=== PATIENT | female | born 1975 | race African-American/Black ===

== ENCOUNTER 2024-09-23 05:58 | Day surgery (SDC) | payer MEDICAID, SELFPAY ==
[2024-09-23] VITALS (9 sets, daily range): BP systolic 120–154; BP diastolic 68–96; PULSE 80–93; RESP 14–18; TEMP 36.2–37.1; O2SAT 98–100; BMI 38.2
[2024-09-23] MEDS: Lactated Ringers 1,000 ML 15 ML IV (06:41)
--- NOTE | 2024-09-23 06:46 | PCM.PRE.AN2 ---
ASA Classification* ASA Classification ASA Classification: 2 Assessment & Plan Anesthesia* Anesthesia Assessment Anesthesia Assessment: Discussed sedation and/or anesthesia options, risks, benefits, and alternatives with patient/parents/legal guardian/POA. Questions invited. The patient/parents/legal guardian/POA seems to understand and agrees to proceed with anesthesia plan. Reviewed the physical assessment, medical history, allergy history and patient home medications list prior to surgery/procedure/anesthetic and documented any changes. Performed airway and anesthesia risk assessments. 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 When Was Last Pacemaker Check QUESTION #4 FULL TEXT: You/Your Family Experience fever (hyperthermia) with Anesthesia Last Oral Intake Last Oral intake: Last Oral Intake NPO since 01:00 09/23/24 06:28 Meds taken in AM with sips of No 09/23/24 06:28 water? 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 - tablet machine operator Female Yes 09/16/24 11:13 HX of Motion Sickness No 09/16/24 11:13 HX of N/V After Surgery No 09/16/24 11:13 Non-Smoker Yes 09/16/24 11:13 Duration of Surgery greater No 09/16/24 11:13 than 60 minutes Number of Risk Factors 2 09/16/24 11:13 PONV Score Moderate Risk 09/16/24 11:13 Height & Weight Height & Weight: Anesthesia: Height & Weight Height 5 ft 2 in 09/23/24 06:28 Weight: 95 kg 09/23/24 06:28 Body Mass Index (BMI) 38.2 09/23/24 06:28 Respiratory Assessment Respiratory Assessment - tablet machine operator: Respiratory Tract Infection Hx - tablet machine operator Hx Respiratory Tract Infection No 09/16/24 11:13 STOP Sleep Apnea STOP Sleep Apnea - tablet machine operator: STOP Sleep Apnea - tablet machine operator Hx Hypertension No 09/16/24 11:13 Hx Sleep Apnea Yes 09/16/24 11:13 CPAP Yes 09/16/24 11:13 BIPAP No 09/16/24 11:13 Do you snore loudly (louder than talking or can be heard Do you often feel tired/ fatigued/ sleepy during daytime? Has anyone observed you stop breathing during sleep? STOP Results Positive 09/16/24 11:13 QUESTION #5 FULL TEXT : Do you snore loudly (louder than talking or can be heard through closed doors)? 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 Specify any problems Hx of Preganancy in last 3 No 09/16/24 11:13 Months Nurse Filling Out Transfusion DSCHRIBER 09/16/24 11:13 & Questions: Date: 09/16/24 09/16/24 11:13 Time: 11:15 09/16/24 11:13 Patient unable to answer at this time (ie. confused, unrespo /Reproduction History /Reproductive History - tablet machine operator: /Reproductive Hx- tablet machine operator Hx Now No 09/16/24 11:13 Gestational Age (in weeks): EDC: Hx Hx Para Hx Section SAB No 09/16/24 11:13 Active Medications Active Medications: Current Medications Generic Name Dose Route Start Last Admin Trade Name Freq PRN Reason Stop Dose Admin Cefazolin Sodium 2 gm/ Sodium 110 mls @ 150 mls/hr 09/23/24 07:30 Chloride IV 09/23/24 08:13 INTRAOP ONE Lactated Ringer's 1,000 mls @ 15 mls/hr 09/23/24 06:15 09/23/24 06:41 IV 15 mls/hr .Q48H SANTI Administration PFSH Medical History Wears glasses Syncope History of hiatal hernia Gastric reflux Asthma Shortness of breath on exertion Non-smoker History of pain when walking History of edema Cardiology follow-up encounter History of echocardiogram History of stress test CPAP (continuous positive airway pressure) dependence Home Medications ?Medication ?Instructions ?Recorded ?Last Taken ?Type albuterol sulfate 90 mcg/actuation 2 inh inhalation Q8H PRN shortness 09/16/24 Unknown History aerosol inhaler of breath or wheezing omeprazole 20 mg tablet,delayed 20 mg PO QHS PRN PRN GERD 09/16/24 Unknown History release Allergy/AdvReac Type Severity Reaction Status Date / Time No Known Allergies Allergy Verified 09/23/24 06:27 Surgical History History of hysterectomy History of bilateral breast reduction surgery History of abdominoplasty Social History household members: spouse, family and children Smoking Status: Former smoker alcohol intake: never Review of Systems (Anesthesia) ROS Narrative System reviewed and no additional complaints, except as documented.
--- NOTE | 2024-09-23 07:05 | PCM.HP.BLA ---
History and Physical Date of Admission: 09/23/24 [facility] [address] [place] [address] OFFICE VISIT Date of Service: 09/08/24 MR#: [id number] Acct: [id number] Name: MARTHA FULLER Rep #: [id number] : 1975 Provider: Dr. Esau Regalado DO Age/Sex: 49/F Location: [facility] [place] Status: Signed Intake Vital Signs 09/08/2508:59 Height 5 ft 2 in Weight: 208 lb 6 oz BMI 38.1 Intake Visit Reasons: RIGHT HAND Chief Complaint: Right Thumb Pain Accompanied by: Self Is patient in pain?: Yes Allergies No Known Allergies Allergy (Unverified 09/08/24 10:00) Medications ?Medication ?Instructions ?Recorded ?Confirmed ?Type NK 09/08/24 09/08/24 History PFSH Surgical History History of hysterectomy History of bilateral breast reduction surgery History of abdominoplasty Social History (Updated 09/08/24 @ 10:06 by Beverly Rangel) household members: spouse, family and children Smoking Status: Former smoker alcohol intake: never HPI RIGHT HAND Details: This documentation accurately reflects the service provided and the decisions made by me, Dr. Esau Regalado, 09/08/24 0751. Part of today?s visit was documented by Beverly Goodrich ATC, acting as scribe. MARTHA FULLER is a 49 year old F here today for right thumb triggering. She states this has been bothering her for 2 years. She had a steroid injection in 2023 and she states this gave her relief for 2 months. She states it used to stiffen up at night and it has gotten back to doing that again. She states when she wakes up her hand will feel stiff and tight. She states she was about to schedule surgery and then she lost her insurance. She does alternate between a brace and splint at night and then during the day she wears a compression wrap on the thumb. She states she can feel the pop in her thumb. She will feel some pain in the base of the thumb. She will get numbness all over the thumb. She denies any numbness in the other fingers and hand. Ortho Exam General General: Yes no acute distress and Yes well groomed Neurologic: Yes alert and Yes oriented x3 Psychologic: Yes reasonable and appropriate Right Wrist/Hand Skin/Wound: Yes CDI, No Swelling, No Ecchymosis and Yes capillary refill normal WRIST: palpable triggering in the thumb Hypertrophied and tender A1 avani of the thumb She states her skin coloration of her hands has changed it does look a bit yellowed but she has got brisk capillary refill I do not see anything of concern. brisk capillary refill Constitutional: Well-developed; well-nourished; in no acute distress Eyes: No jaundice ENT: Nares patent; no obvious deformity Cardiovascular: No cyanosis; clubbing; or edema Lymphatic: No adenopathy in area of examination Skin: No rashes or lesions in the area of examination and intact Neurologic: Alert and oriented x 3 Psychiatric: Mood and affect appropriate Supplemental Info 06/01/2024 x-ray right hand: Report from outside facility mild degenerative change no acute abnormality Coding Level of Care Code Off vis,new,level 3 Diagnoses Trigger finger of right thumb M65.311 Assessment and Plan Assessment and Plan (1) Trigger finger of right thumb: Status: Acute Plan Explained to patient that she does have a trigger of the A1 avani of the thumb of the right hand. Explained that the numbness that she does experience in the thumb will not get better after surgery. Spoke to her about the surgical procedure and any incision in the hands are very sensitive due to so many nerve endings sometimes for many months. She will have weight restrictions of 1/2 pound for the first 2 weeks and then will increase it to 5 pounds after 2 weeks. She should avoid any Ibuprofen, Aleve or any NSAIDs 7 days prior to surgery but she can take Tylenol if she would need to. Patient would like to proceed with a right thumb A1 avani release surgery. Risk and benefits of surgery reviewed including risk of bleeding infection nerve artery tissue damage need for further surgery continued pain and recurrence as well as specifically addressed injury to the radial digital nerve as it does often cross the surgical field. However she already has numbness all over her thumb. Tentative surgery date September 23, 2024 Follow up after surgery for post-op appointments or sooner if pain, swelling, numbness or associated symptoms, or concerns develop. All questions answered. Patient in agreement of plan. 09/08/24 1039 <Electronically signed by Esau Regalado DO> Date Esau Regalado DO I have examined the patient and the H&P has been reviewed. There are no clinical changes since date of exam.
[2024-09-23] MEDS: Cefazolin 2 GM in 0.9% Normal Saline (100mL Bag) 100 ML IV (07:20)
[2024-09-23] MEDS: Lidocaine 1% /Epi 1:100 (20ml) 20 ML Vial (07:44)
--- NOTE | 2024-09-23 07:53 | PCM.OPRPT ---
Operative Report (Standard) Operative Information Date of Procedure: 09/23/24 Pre-Operative Diagnosis: Right trigger thumb Post-Operative Diagnosis: Same Surgery/Procedure Performed: Right thumb A1 avani release occupational health and safety manager: Yes E Commerce Manager: Ken Andrews Tasks completed by assistant professor of archaeology: Opening & closing Type of Anesthesia: General RN Documented Start/Stop Times: Operation Date: 09/23/24 07:30 Case Time Into Pre-Op 09/23/24 06:02 Out of Pre-Op 09/23/24 07:13 Anesthesia Start 09/23/24 07:16 Into Room 09/23/24 07:16 Procedure Start 09/23/24 07:33 Procedure End 09/23/24 07:46 Procedure Start Time: 07:33 Procedure Stop Time: 07:46 Select all DRAINS/GRAFTS/IMPLANTS that apply: None Estimated Blood Loss: 0 Specimen collected: No Description of surgery: Preoperative diagnosis; right thumb digit trigger finger Postoperative diagnosis; same Procedure: Right first digit A1 avani release Anesthesia: General Tourniquet time; 12 minutes 250 mm Hg Complications: None Indication for procedure; This is a 49-year-old female with symptoms consistent with trigger thumb. Risks benefits and alternatives were reviewed including risks of bleeding infection nerve tendon tissue damage need for further surgery and continued pain and symptoms, hypersensitivity to scar/incision and recurrence. Procedure; The patient was met in the preoperative holding area the operative extremity was identified by both patient and physician and was marked the patient was met by anesthesia and brought back to the operating room and transferred to the operating table in the supine position. Aanesthesia was started. A well-padded tourniquet was placed on the operative upper extremity. The patient was prepped and draped in the usual sterile fashion. A timeout was called to ensure the proper patient procedure and extremity were being contemplated. Esmarch was used tourniquet was inflated. 15 blade scalpel was used to make a horizontal incision directly over the flexion crease distal to A1 avani was carried down through the skin dissection scissors were used to ensure no injury to any crossing branches of the radial digital nerve there was a branch identified and rationale retractors were used to protect the digital nerves and visualize the A1 avani under direct visualization a deep blade scalpel was used to release the A1 avani. The wound was thoroughly irrigated and closed with 4-0 nylon vertical mattress edges. 0.25 percent Marcaine plain was injected into the incisional area dressing was applied in the form of Xeroform 4 x 4 web roll and an Juanjo wrap. Patient tolerated the procedure well was brought back to the PACU in stable condition. Surgical Findings: Hypertrophied A1 avain Complications Complications: No
--- NOTE | 2024-09-23 07:54 | EX.PCM.DISCH ---
Discharge Instructions Diet Discharge Diet: No restrictions Dressing / Incision Call your doctor if you observe: Shortness of breath and Chest pain Additional Dressing/Incision Instructions:: Ice and elevate operative extremity next 72 hours. Keep dressing on clean and dry for 48 hours then may remove and allow warm soapy water to rinse over incision but do not submerge until sutures are out. Then apply bandaid over incision and change daily. encourage finger range of motion. Not lift more than 1/2 pound. Minimize narcotic use only as needed and directed, may use OTC NSAID and Tylenol to supplement/substitute for pain control. Follow Up Care Please Follow Up With: Esau Regalado DO When: 2 weeks Test Results: Test results from this visit will be discussed in further detail at your follow-up appointment, if applicable. Discharge Plan Admission Primary Reason for Your Visit: Right trigger thumb Attending Provider: Esau Regalado Primary Care Provider: GUANACO JOINER Instructions Print Language: [place] Islander Discharge Orders/Prescriptions Prescriptions: New hydrocodone-acetaminophen 5-325 mg tablet 1 tab PO Q6H PRN (Reason: pain) 2 Days Qty: 5 0RF No Action omeprazole 20 mg tablet,delayed release (DR/EC) 20 mg PO QHS PRN PRN (Reason: GERD) albuterol sulfate 90 mcg/actuation HFA aerosol inhaler 2 inh inhalation Q8H PRN (Reason: shortness of breath or wheezing) Referrals / Follow Up: GUANACO JOINER MD [Primary Care Provider] - Disposition Disposition (needs filled in before D/C Order can be placed): Home, Self Care
--- NOTE | 2024-09-23 08:09 | PCM.POST.ANE ---
Anesthesia: Postop Eval I Current Vital Signs Temperature: 97.3 F Pulse Rate: 92 Blood Pressure: 143/78 Respiratory Rate: 14 Pulse Ox: 98 Oxygen Delivery Method: Simple Mask Assessment Airway patent: Yes Spontaneous unlabored respirations: Yes Mental status: Awake nausea: No Vomiting: No Anesthesia Complication: No Fluid Hydration Crystalloid volume administer (ml): 500 Total IV fluid infused: 500 Progress Note Anesthesia document: Postop Eval 1 completed: Yes
--- NOTE | 2024-09-23 08:17 | POSTOPAN2_ITS ---
Anesthesia Postop Eval I Sum Postop Eval Completion status Anesthesia document: Postop Eval 1 completed: Yes Anesthesia Postop Eval I Summary Anesthesia Postop Eval I Summary: Anesthesia Postop Eval I: Assessment Summary Airway patent Yes 09/23/24 08:09 [email or web address] Spontaneous unlabored Yes 09/23/24 08:09 BLEACH [email or web address].HBARR respirations Mental status Awake 09/23/24 08:09 BLEACH [email or web address] nausea No 09/23/24 08:09 BLEACH [email or web address].HBARR Vomiting No 09/23/24 08:09 BLEACH [email or web address].HBARR Anesthesia Postop Eval I: Fluid Summary Crystalloid volume administer 500 09/23/24 08:09 BLEACH [email or web address].HBARR (ml) Colloids volume administered ( ml) Blood Product volume administered (ml) Total IV fluid infused 500 09/23/24 08:09 BLEACH [email or web address].HBARR Anesthesia Postop Eval I: Summary Notes Anesthesia Complication No 09/23/24 08:09 BLEACH [email or web address].HBARR Anesthesia Complication Comment: Post-operative progress note Anesthesia: Postop Eval II Evaluation Mental status: Awake Pain Level: 1 nausea: No Vomiting: No
--- NOTE | 2024-09-23 08:17 | PCM.POSTANE2 ---
Anesthesia Postop Eval I Sum Postop Eval Completion status Anesthesia document: Postop Eval 1 completed: Yes Anesthesia Postop Eval I Summary Anesthesia Postop Eval I Summary: Anesthesia Postop Eval I: Assessment Summary Airway patent Yes 09/23/24 08:09 SENIOR MEDIA [email or web address] Spontaneous unlabored Yes 09/23/24 08:09 SENIOR MEDIA [email or web address].HBARR respirations Mental status Awake 09/23/24 08:09 SENIOR MEDIA [email or web address].HBARR nausea No 09/23/24 08:09 SENIOR MEDIA BUYER.HBARR Vomiting No 09/23/24 08:09 SENIOR MEDIA [email or web address].HBARR Anesthesia Postop Eval I: Fluid Summary Crystalloid volume administer 500 09/23/24 08:09 SENIOR MEDIA [email or web address].HBARR (ml) Colloids volume administered ( ml) Blood Product volume administered (ml) Total IV fluid infused 500 09/23/24 08:09 SENIOR MEDIA BUYER.HBARR Anesthesia Postop Eval I: Summary Notes Anesthesia Complication No 09/23/24 08:09 SENIOR MEDIA [email or web address].HBARR Anesthesia Complication Comment: Post-operative progress note Anesthesia: Postop Eval II Evaluation Mental status: Awake Pain Level: 1 nausea: No Vomiting: No
== END 2024-09-23 09:11 | disposition home or self-care (01) ==
LOC: SDC 06:01 → AC 06:03
PROVIDERS: PCP Internal Medicine; Referring Provider Orthopaedic Surgery; Visit Provider Orthopaedic Surgery
PROC: (CPT 26055; principal; 2024-09-23 07:20)
DX: M65.311 Trigger thumb, right thumb (principal); Z87.891 Personal history of nicotine dependence; R20.0 Anesthesia of skin; K21.9 Gastro-esophageal reflux disease without esophagitis; J45.909 Unspecified asthma, uncomplicated
CPT/HCPCS: 26055; 01810; J2405